=== PATIENT | male | born 1935 | race Caucasian/White ===

== ENCOUNTER 2017-08-15 13:46 | Emergency (ER) | payer OTHER ==
[~2017-08-15] VITALS: Ht 198.1 cm; Wt 108.3 kg
[~2017-08-15 13:46] MED LIST: ALUM5LIQ PO; ASPI81TA82 PO; ATOR40TA PO; GABA100C4 PO; LEVO150T42 PO; PROS5TAB2 PO
[2017-08-15 13:50] VITALS: BP 147/63; PULSE 82; RESP 16; TEMP 97.6; O2SAT 97
[2017-08-15] MEDS ORDERED: LEVO175T2 PO (14:00)
[2017-08-15] MEDS ORDERED: ATOR40TA16 PO (14:00)
[2017-08-15] MEDS ORDERED: FLUT1INH7 INH (14:00)
[2017-08-15] MEDS ORDERED: LIDOCAINE 1%/EPINEPHrine 1:100,000 SOLN 30 ML VIAL ONE (14:24)
[2017-08-15] MEDS ORDERED: LIDOCAINE 1%/EPINEPHrine 1:100,000 SOLN 20 ML VIAL INFIL ONE (14:30)
[2017-08-15] MEDS ORDERED: CEPH-460 PO (14:50)
[2017-08-15] MEDS ORDERED: BACT800T5 PO (14:50)
--- NOTE | 2017-08-15 14:51 | PD ---
HPI Chief Complaint: Lump, Cyst, Hernia Time Seen by Provider: 14:01 Travel History International Travel<30 days: No Contact w/Intl Traveler<30days: No Traveled to known affect area: No History of Present Illness HPI This is an 82-year-old male who presents for evaluation of possible abscess on his back. He states that over the last 4 days, he has noticed a lump on his mid back. He has a history of sebaceous cysts and had one resected in the past. There is now overlying erythema and it is firmer than previous. No fever , chills, nausea, vomiting, diarrhea. It is minimally tender. No drainage from it. States that his tetanus immunization is up-to-date. Symptoms are mild in severity. Onset gradual. No prior treatment for this particular cyst. No known alleviating or aggravating factors. PFSH Past Medical History Autoimmune Disease: No Cardiovascular Problems: No High Cholesterol: Yes Diabetes: Yes Patient Takes Glucophage: No Diminished Hearing: No Gastrointestinal Disorders: Yes Genitourinary: No Hiatal Hernia: Yes Hypertension: Yes Musculoskeletal: No Neurologic: No Respiratory: Yes Thyroid Disease: Yes ("INACTIVE") Tetanus Vaccination: Unknown Influenza Vaccination: Yes ?: Not Past Surgical History Appendectomy: Yes Cholecystectomy: Yes Endocrine Surgery: Yes Tonsillectomy: Yes Other Surgery: Yes Social History Alcohol Use: No Tobacco Use: No Substance Use: No Allergies-Medications (Allergen,Severity, Reaction): Coded Allergies: No Known Allergies (Verified Adverse Reaction, Unknown, 08/15/17) Reported Meds & Prescriptions Reported Meds & Active Scripts Active Reported Atorvastatin (Atorvastatin Calcium) 40 Mg Tab 40 Mg PO HS Breo Ellipta Inh (Fluticasone/Vilanterol) 200-25 Mcg/Act Inh 1 Puff INH DAILY Use daily at the same time. Levothyroxine (Levothyroxine Sodium) 175 Mcg Tab 175 Mcg PO DAILY Review of Systems General / Constitutional: No: Fever, Chills HENT: No: Lightheadedness Respiratory: No: Cough Gastrointestinal: No: Nausea, Vomiting Musculoskeletal: No: Myalgias, Limited ROM Skin: No Rash Physical Exam Narrative GENERAL: Alert, well nourished, well appearing patient resting on the bed in no acute distress. Vital Signs reviewed SKIN: Focused skin assessment warm/dry. On the right mid to upper back, there is an approximately 5 cm area of cyst with induration and central fluctuance. Mild overlying erythema which does not extend past raised area. Minimally tender. No crepitus or bullae HEAD: Atraumatic. Normocephalic. EYES: Pupils equal and round. No scleral icterus. No injection or drainage. ENT: No nasal bleeding or discharge. Mucous membranes pink and moist. NECK: Trachea midline. No JVD. Spontaneous, painless full range of motion with no meningismus CARDIOVASCULAR: Regular rate and rhythm. No murmur appreciated. Extremities warm and well perfused with bounding peripheral pulses RESPIRATORY: No accessory muscle use. Clear to auscultation. Breath sounds equal bilaterally. Breathing easily and speaking in full sentences NEUROLOGICAL: Awake and alert. No obvious cranial nerve deficits. Motor grossly within normal limits. Normal speech. Sensation intact. Normal gait Data Data Last Documented VS Vital Signs Date Time Temp Pulse Resp B/P (MAP) Pulse Ox O2 Delivery O2 Flow Rate FiO2 08/15/17 13:50 97.6 82 16 147/63 (91) 97 Orders Orders Lidocai-Epi 1%-1:100,000 Inj (Xylocaine- (08/15/17 14:30) Wound Culture And Gram Stain (08/15/17 14:18) Lidocai-Epi 1%-1:100,000 Inj (Xylocaine- (08/15/17 14:24) MDM Medical Decision Making Medical Screen Exam Complete: Yes Emergency Medical Condition: Yes Differential Diagnosis Sebaceous cyst, infected sebaceous cyst, abscess, cellulitis Narrative Course The patient appears very well. He does not appear septic. He has an infected sebaceous cyst on his back. This was incised and drained and packed after verbal consent was obtained. Patient tolerated this very well. Plan for discharge with supportive care, Bactrim and Keflex, warm compresses, wound recheck in 2 days and close outpatient follow-up. Patient understands the importance of close outpatient follow-up. He understands he may require further testing and treatment as an outpatient. He understands strict return indications. He is comfortable with this plan and eager to go home. Procedures Procedure Narrative INCISION AND DRAINAGE OF ABSCESS: Verbal consent was obtained. The area was prepped with betadine and was sterilely draped. A subcutaneous wheal of 1% Xylocaine with epinephrine with a total number 4 mL was used to anesthetize the area properly. A number 11 scalpel was used to make a 1 -cm incision across the area of the abscess. The abscess was drained, complex loculations were broken down, and irrigated with normal saline. Cultures were obtained. Half inch iodoform packing was placed in the wound. Sterile dressing applied. Patient advised to have packing removed in two days. Diagnosis Primary Impression: Infected sebaceous cyst Referrals: Primary Care Physician 4 days Patient Instructions: Abscess Follow-up (ED), Abscess Incision and Drainage (DC ), General Instructions Additional Instructions: Keep wound clean and dry. Apply warm compresses 4 times a day. Take antibiotics as directed. Take with [id number] probiotics. Follow-up closely with primary physician within 1-4 days. Return to emergency department in 2 days for packing removal and wound reevaluation. Return sooner if you have fever, severe pain, worsening symptoms, other concerns. Med/Other Pt SpecificInfo: Prescription(s) given Scripts Cephalexin (Keflex) 500 Mg Cap 500 MG PO Q12H for Infection for 7 Days, #14 CAP 0 Refills Prov: Louise Kaur MD 08/15/17 Sulfamethoxazole-Trimethoprim (Bactrim DS) 800-160 Mg Tab 1 TAB PO BID for Infection, #14 TAB 0 Refills Prov: Louise Kaur MD 08/15/17 Disposition: 01 DISCHARGE HOME Condition: Stable Louise Kaur MD Aug 15, 2017 14:51
== END 2017-08-15 15:15 | disposition home or self-care (01) ==
LOC: PHEFT 13:46
DX: L72.3 Sebaceous cyst (principal); B96.89 Other specified bacterial agents as the cause of diseases classified elsewhere; E78.00 Pure hypercholesterolemia, unspecified; E11.9 Type 2 diabetes mellitus without complications; I10 Essential (primary) hypertension
CPT/HCPCS: 10061; 87070; 87185; 87205

== ENCOUNTER 2017-08-17 09:08 | Emergency (ER) | payer OTHER ==
[~2017-08-17] VITALS: Ht 198.1 cm; Wt 108.0 kg
[~2017-08-17 09:08] MED LIST changes: -ALUM5LIQ PO; -ASPI81TA82 PO; -ATOR40TA PO; +ATOR40TA16 PO; +BACT800T5 PO; +CEPH-460 PO; +FLUT1INH7 INH; -GABA100C4 PO; -LEVO150T42 PO; +LEVO175T2 PO; -PROS5TAB2 PO
[2017-08-17 09:13] VITALS: BP 125/67; PULSE 98; RESP 16; TEMP 98.1; O2SAT 95
--- NOTE | 2017-08-17 09:33 | PD ---
HPI Chief Complaint: Wound/Suture/Staple Re-Check Time Seen by Provider: 09:24 Travel History International Travel<30 days: No Contact w/Intl Traveler<30days: No Traveled to known affect area: No History of Present Illness HPI 82-year-old male that presents to the ED for evaluation of recheck of abscess to his back. Patient was seen here about 2 days ago for the same. He had it incised and drained and started on antibiotics. The patient his been doing fine and he was told to come here 2 days later to get the packing removed. He denies any other medical issues. Per patient is not really bothering him. No fevers chills or sweats. He states been compliant with his medications. No other medical issues. No allergies to medication. PFSH Past Medical History Autoimmune Disease: No Cardiovascular Problems: No High Cholesterol: Yes Diabetes: Yes Patient Takes Glucophage: No Diminished Hearing: No Gastrointestinal Disorders: Yes Genitourinary: No Hiatal Hernia: Yes Hypertension: Yes Musculoskeletal: No Neurologic: No Respiratory: Yes Thyroid Disease: Yes ("INACTIVE") Tetanus Vaccination: < 5 Years Influenza Vaccination: Yes Past Surgical History Appendectomy: Yes Cholecystectomy: Yes Endocrine Surgery: Yes Tonsillectomy: Yes Other Surgery: Yes Social History Alcohol Use: No Tobacco Use: No Substance Use: No Allergies-Medications (Allergen,Severity, Reaction): Coded Allergies: No Known Allergies (Verified Adverse Reaction, Unknown, 08/17/17) Reported Meds & Prescriptions Reported Meds & Active Scripts Active Keflex (Cephalexin) 500 Mg Cap 500 Mg PO Q12H 7 Days Bactrim DS (Sulfamethoxazole-Trimethoprim) 800-160 Mg Tab 1 Tab PO BID Reported Atorvastatin (Atorvastatin Calcium) 40 Mg Tab 40 Mg PO HS Breo Ellipta Inh (Fluticasone/Vilanterol) 200-25 Mcg/Act Inh 1 Puff INH DAILY Use daily at the same time. Levothyroxine (Levothyroxine Sodium) 175 Mcg Tab 175 Mcg PO DAILY Review of Systems Except as stated in HPI: all other systems reviewed are Neg Physical Exam Narrative GENERAL: SKIN: Warm and dry. Patient has a draining abscess on the mid thoracic back. packing noted. No other sign of infection. No erythema. Purulence coming from the wound. WOund about 3 cm in diameter with a 1 cm opening HEAD: Atraumatic. Normocephalic. EYES: Pupils equal and round. No scleral icterus. No injection or drainage. ENT: No nasal bleeding or discharge. Mucous membranes pink and moist. NECK: Trachea midline. No JVD. CARDIOVASCULAR: Regular rate and rhythm. RESPIRATORY: No accessory muscle use. Clear to auscultation. Breath sounds equal bilaterally. GASTROINTESTINAL: Abdomen soft, non-tender, nondistended. Hepatic and splenic margins not palpable. MUSCULOSKELETAL: Extremities without clubbing, cyanosis, or edema. No obvious deformities. NEUROLOGICAL: Awake and alert. No obvious cranial nerve deficits. Motor grossly within normal limits. Five out of 5 muscle strength in the arms and legs. Normal speech. PSYCHIATRIC: Appropriate mood and affect; insight and judgment normal. Data Data Last Documented VS Vital Signs Date Time Temp Pulse Resp B/P (MAP) Pulse Ox O2 Delivery O2 Flow Rate FiO2 08/17/17 09:13 98.1 98 16 125/67 (86) 95 Orders Orders Ed Discharge Order (08/17/17 09:31) MDM Medical Decision Making Medical Screen Exam Complete: Yes Emergency Medical Condition: Yes Medical Record Reviewed: Yes Differential Diagnosis Abscesses versus draining abscess versus cyst versus wound recheck Narrative Course 82-year-old male that presents to the ED for evaluation of abscess recheck. Patient was properly examined and was found to have signs and symptoms consistent with appears to be wound recheck. No sign of acute distress. After splint proceeded to the patient and she agreed to it using sterile tweezers packing was removed with minimal discomfort for the patient. I was able to drain some purulence about 3 cc from the wound with minimal discomfort for the patient. New dressing was applied. No new packing placed. Patient was told to continue taking antibiotics. My attending Dr. Kaur evaluated the patient herself and agrees with plan. Follow up with PCP. She instructed the patient to take probiotics [id number]. See ED worsening symptoms. Diagnosis Primary Impression: Abscess re-check Patient Instructions: General Instructions Additional Instructions: Continue meds. Take probiotics OTC to help reduce side effects from antibiotic. See ED if worst. F/u with PCP next week Med/Other Pt SpecificInfo: No Change to Meds Disposition: 01 DISCHARGE HOME Condition: Stable Anson Joy Aug 17, 2017 09:33
== END 2017-08-17 09:45 | disposition home or self-care (01) ==
LOC: PHEFT 09:08
DX: Z09 Encounter for follow-up examination after completed treatment for conditions other than malignant neoplasm (principal); Z48.01 Encounter for change or removal of surgical wound dressing
CPT/HCPCS: 99281